=== PATIENT | male | born 2000 | race Caucasian/White ===

== ENCOUNTER 2025-04-21 12:10 | Emergency (ER) | payer OTHER, BC ==
[~2025-04-21] VITALS: Ht 185.4 cm; Wt 145.4 kg
[2025-04-21 12:29] VITALS: BP 156/116; PULSE 116; RESP 20; TEMP 98.1; O2SAT 99
[2025-04-21] MEDS: PROPARACAINE HCL 0.5% 15 ML OPHTHALMIC SOLUTION OU ONE (13:59)
[2025-04-21] MEDS: FLUORESCEIN SODIUM 1 MG STRIP OU ONE (13:59)
[2025-04-21] MEDS: SODIUM CHLORIDE 0.9% 1,000 ML IV ONE (14:21)
[2025-04-21] MEDS ORDERED: ERYT3.5O8 OS (15:56)
[2025-04-21] MEDS: ERYTHROMYCIN 0.5% 3.5 GM TUBE OPHTHALMIC OINTMENT OS ONE (16:18)
== END 2025-04-21 16:25 | disposition home or self-care (01) ==
LOC: EMS 12:10
DX: T15.00XA Foreign body in cornea, unspecified eye, initial encounter (principal); W44.9XXA Unspecified foreign body entering into or through a natural orifice, initial encounter
CPT/HCPCS: 99284; J9035; Z7502; Z7610